=== PATIENT | female | born 2000 | race Caucasian/White ===

== ENCOUNTER 2019-03-27 17:09 | Emergency (ER) | payer OTHER ==
[~2019-03-27] VITALS: Ht 162.6 cm; Wt 61.2 kg
[2019-03-27 17:16] VITALS: Ht 162.6 cm; Wt 61.2 kg
[2019-03-27 17:58] VITALS: BP 133/82
== END 2019-03-27 17:59 | disposition other institution (70) ==
LOC: ED 17:09
DX: Z02.89 Encounter for other administrative examinations (principal)